=== PATIENT | male | born 1955 ===

== ENCOUNTER 2022-07-17 09:15 | Outpatient (REF) | payer MEDICARE, SELFPAY ==
[2022-07-17 11:05] LABS: MANUAL DIFF FLAG NO
[2022-07-17 11:28] LABS: Basophils Absolute Auto 0.1 X10*3/uL (0.0-0.2); Basophils Percent Auto 0.9 % (0-2); Eosinophils Absolute Auto 0.3 X10*3/uL (0.0-0.4); Eosinophils Percent Auto 5.1 % (0-4); Hematocrit 39.9 % (42.0-52.0); Hemoglobin 13.4 g/dl (14.0-18.0); Imm Gran Abs Auto 0.02 X10*3/uL (0.00-0.03); Imm Gran Pct Auto 0.3 % (0.0-0.4); Lymphocytes Absolute Auto 1.4 X10*3/uL (1.2-4.9); Lymphocytes Percent Auto 24.6 % (20-40); Mean Corpuscular HGB Conc 33.6 g/dl (31.0-36.0); Mean Corpuscular Hemoglobin 31.5 pg (27.0-33.0); Mean Corpuscular Volume 93.9 fL (80.0-98.0); Mean Platelet Volume 9.7 fL (9.4-12.4); Monocytes Absolute Auto 0.5 X10*3/uL (0.1-1.2); Monocytes Percent Auto 8.5 % (2-11); Neutrophils Absolute Auto 3.5 x10*3/uL (2.0-8.3); Neutrophils Percent Auto 60.6 % (45-73); Platelet Count 323 X10*3/uL (160-400); Red Blood Count 4.25 X10*6/uL (4.60-5.80); Red Cell Distribution Width 12.2 % (11.0-16.0); White Blood Count 5.9 X10*3/uL (4.8-10.8)
[2022-07-17 11:48] LABS: Estimated Average Glucose 103 mg/dL; Hemoglobin A1c % 5.2 %
[2022-07-17 11:53] LABS: Alanine Aminotransferase 12 U/L (0-40); Albumin Level 4.1 g/dL (3.5-5.0); Alkaline Phosphatase 28 U/L (39-117); Anion Gap 15 (12-20); Aspartate Amino Transferase 16 U/L (5-37); Bilirubin Total 1.3 mg/dL (0.0-1.0); Blood Urea Nitrogen 11 mg/dL (9-16); Calcium 9.7 mg/dL (8.4-10.2); Carbon Dioxide 25 mmol/L (22-29); Chloride 107 mmol/L (96-108); Cholesterol 210 mg/dL; Estimated Glomerular Filt Rate > 60; Glucose Random 99 mg/dL (60-115); HDL Cholesterol 50 mg/dL; LDL Cholesterol Calculated 146 mg/dl; Potassium 4.5 mmol/L (3.3-5.1); Sodium 142 mmol/L (135-145); Total Protein 6.6 g/dL (6.5-8.0); Triglycerides 70 mg/dL
== END 2022-07-17 09:16 | disposition home or self-care (01) ==
LOC: HO.MANLDS 09:15
PROVIDERS: Physician Assistant; Visit Provider Internal Medicine
DX: R73.01 Impaired fasting glucose (principal)
CPT/HCPCS: 36415; 80053; 80061; 83036; 85025

== ENCOUNTER 2025-05-30 09:27 | Outpatient (REF) | payer MEDICARE, SELFPAY ==
--- OUTSIDE RECORDS SUMMARY | 2025-05-30 11:09 | XMS_ITS | Encounter Summary ---
Author Organization [facility] Address [address] [facility] [address] [place] [address] Phone Care Team Providers Care Catering And Events Manager Name Role Phone Pieter Bragg MD Primary Care Provider [phone] Vic Mendez DO Primary Care Provider [phone] Reason for Referral * - Closed Specialty Diagnoses / Procedures Referred By Contangelica t Referred To Contact Radiology Diagnoses PAD (peripheral artery disease) Procedures US Aorta Duplex Complete Mariaa Cruz PA [address] [facility] [place] [address] [place] [address] Phone: tel: fax: Referral ID Status Reason Start Date Expiration Date Visits Re quested Visits Authorized [id number] Closed 10/15/2022 10/15/2023 1 1 Encounter Details Date Type Department Care Team (Late st Contact Info) Description 10/15/2022 Ancillary Orders [facility] [address] [place] [address] Mariaa Cruz PA [address] [facility] [place] [address] [place] [address] PAD (peripheral artery disease) Social History Tobacco Use Types Packs/Day Years Used Date Smoking Tobacco: Never Assessed Sex and Gender Information Value Date Recorded Sex Assigned at Male 10/10/2022 12:07 PM EST Legal Sex Male 9:53 PM EDT Gender Identity Male 10/10/2022 12:07 PM EST Sexual Orientation Straight 10/10/2022 12 :07 PM EST documented as of this encounter Plan of Treatment Not on file documented as of this encounter Results * US Aorta Duplex Complete (10/15/2022 10:56 AM EST) Anatomical Region Laterality Modality Aorta Ultrasound Narrative 10/15/2022 1:09 PM EST See scanned document. us Mariaa Nelson FOY IMG US ABDOMEN Final Resul t documented in this encounter Visit Diagnoses Diagnosis PVD (peripheral vascular disease) Unspecified peripheral vascular disease PAD (peripheral artery disease) Unspecified peripheral vascular disease PAD (peripheral artery disease) Unspecified peripheral vascular disease documented in this encounter Additional Health Concerns Infection Onset Date Last Indicated Resolved Time CoV-Risk 10/10/2022 10/10/2022 10/21/2022 1:23 AM EST documented as of this encounter Care Teams Catering And Events Manager Relationship Specialty Start Date End Date Pieter Bragg MD [address] [place] [address] PCP - General Family Medicine 03/07/20 01/26/23 Vic Mendez DO [address] [place] [address] PCP - General Internal Medicine 01/27/23 documented as of this encounter Additional Source Comments The information contained in this document represents components of the legal health record. It is not the complete legal health record.[facility]
--- OUTSIDE RECORDS SUMMARY | 2025-05-30 11:09 | XMS_ITS | Encounter Summary ---
Author Organization [facility] Address [address] [facility] [address] [place] [address] Phone Care Team Providers Care Furniture Crater Name Role Phone Pieter Bragg MD Primary Care Provider + [phone] Vic Mendez DO Primary Care Provider [phone] Reason for Referral * Physical Therapy (Elective) - Closed Specialty Diagnoses / Procedures Referred By Carlos krause Referred To Contact Physical Therapy Diagnoses Encounter for rehabilitation Left Shoulder ,Decrease pain and swelling , increase ROM or FLEXIBILITY , Strength and endurance Katie Daniel MD Phone: tel: fax: [address] [address] Phone: tel: Referral ID Status Reason Start Date Expiration Date Visits Re quested Visits Authorized [id number] Closed 05/26/2020 09/07/2020 25 25 Encounter Details Date Type Department Care Team (Latest Contact Info) Description 05/01/2020 Transcribe Orders [facility] [address] [place] [address] Katie Daniel MD [address] [place] [phone] Encounter for rehabilitation (Primary Dx) Social History Tobacco Use Types Packs/Day Years [...] on file documented as of this encounter Procedures Procedure Name Priority Date/Time Associated Diagnosis Comments AMB REFERRAL TO [facility] PHYSICAL THERAPY Routine 05/26/2020 1:30 PM EDT Encounter for rehabilitation documented in this encounter Results * Ambulatory referral to [facility] Physical Therapy (05/26/2020 1:30 PM EDT) us Katie Daniel MD AMB [facility] REFERRALS Rebecca l Result documented in this encounter Visit Diagnoses Diagnosis Encounter for rehabilitation- Primary documented in this encounter Additional Health Concerns Infection Onset Date Last Indicated Resolved Time CoV-Risk 10/10/2022 10/10/2022 10/21/2022 1:23 AM EST documented as of this encounter Care Teams Furniture Crater Relationship Specialty Start Date End Date Pieter Bragg MD [address] [place] [address] PCP - General Family Medicine 03/07/20 01/26/23 Vic Mendez DO [address] [place] [address] PCP - General Internal Medicine 01/27/23 documented as of this encounter Additional Source Comments The information contained in this document represents components of the legal health record. It is not the complete legal health record.[facility]
--- OUTSIDE RECORDS SUMMARY | 2025-05-30 11:09 | XMS_ITS | Encounter Summary ---
Author Organization [facility] Address [address] [facility] [address] [place] [address] Phone Care Team Providers Care Manager Wound Care Name Role Phone Unknown, Unknown Primary Care Provider Pieter Browne MD Primary Care Provider + [phone] Vic Mendez DO Primary Care Provider [phone] Reason for Referral * Physical Therapy (Routine) - Closed Specialty Diagnoses / Procedures Referred By Carlos krause Referred To Contact Physical Therapy Diagnoses Encounter for rehabilitation Left Shoulder Katie Daniel MD Phone: tel: fax: [address] [address] Phone: tel: Referral ID Status Reason Start Date Expiration Date Visits Re quested Visits Authorized [id number] Closed 03/02/2020 09/07/2020 17 17 Encounter Details Date Type Department Care Team (Latest Contact Info) Description 02/24/2020 Transcribe Orders [facility] [address] [place] [phone] Katie Daniel MD [address] [place] [phone] Encounter for rehabilitation (Primary Dx) Social History [...] Date/Time Associated Diagnosis Comments AMB REFERRAL TO [facility] PHYSICAL THERAPY Routine 03/02/2020 3:01 PM EDT Encounter for rehabilitation documented in this encounter Results * Ambulatory referral to [facility] Physical Therapy (03/02/2020 3:01 PM EDT) us Katie Daniel MD AMB [facility] REFERRALS Rebecca l Result documented in this encounter Visit Diagnoses Diagnosis Encounter for rehabilitation- Primary documented in this encounter Additional Health Concerns Infection Onset Date Last Indicated Resolved Time CoV-Risk 10/10/2022 10/10/2022 10/21/2022 1:23 AM EST documented as of this encounter Care Teams Manager Wound Care Relationship Specialty Start Date End Date Unknown, Unknown, MD PCP - General 02/23/20 03/06/20 Pieter Bragg MD [address] [place] [address] PCP - General Family Medicine 03/07/20 01/26/23 Vic Mendez DO [address] [place] [address] PCP - General Internal Medicine 01/27/23 documented as of this encounter Additional Source Comments The information contained in this document represents components of the legal health record. It is not the complete legal health record.[facility]
--- OUTSIDE RECORDS SUMMARY | 2025-05-30 11:09 | XMS_ITS | Encounter Summary ---
Author Organization [facility] Address [address] [facility] [address] [place] [address] Phone Care Team Providers Care Email Marketing Coordinator Name Role Phone Pieter Bragg MD Primary Care Provider Vic Mendez DO Primary Care Provider [phone] Reason for Referral * - Closed Specialty Diagnoses / Procedures Referred By Contac t Referred To Contact Radiology Diagnoses PAD (peripheral artery disease) Procedures US Lower Extremity Arteries (ZO) Physio Complete Bilat Pieter Bragg MD [address] [place] [address] Phone: tel: fax: [email or web address]:[email or web address] Referral ID Status Reason Start Date Expiration Date Visits Re quested Visits Authorized [id number] Closed 10/15/2022 10/15/2023 1 1 Encounter Details Date Type Department Care Team (Late st Contact Info) Description 10/15/2022 Ancillary Orders [facility] [address] [facility] [address] [place] [address] Pieter Bragg MD [address] [place], [place] [phone] [email or web address] PAD (peripheral artery disease) Social History Tobacco [...] as of this encounter Results * US Lower Extremity Arteries (ZO) Physio Complete Bilat (10/15/2022 10:56 AM EST) Anatomical Region Laterality Modality Ultrasound Narrative 10/15/2022 1:08 PM EST See scanned document. Procedure Note Farooq Jerome MD - 10/15/2022 See scanned document. us Pieter Bragg MD CV US VASCULAR Final Result documented in this encounter Visit Diagnoses Diagnosis PVD (peripheral vascular disease) Unspecified peripheral vascular disease PAD (peripheral artery disease) Unspecified peripheral vascular disease PAD (peripheral artery disease) Unspecified peripheral vascular disease documented in this encounter Additional Health Concerns Infection Onset Date Last Indicated Resolved Time CoV-Risk 10/10/2022 10/10/2022 10/21/2022 1:23 AM EST documented as of this encounter Care Teams Email Marketing Coordinator Relationship Specialty Start Date End Date Pieter Bragg MD [address] [place] [address] [email or web address] PCP - General Family Medicine 03/07/20 01/26/23 Vic Mendez DO [address] [place] [address] [email or web address] PCP - General Internal Medicine 01/27/23 documented as of this encounter Additional Source Comments The information contained in this document represents components of the legal health record. It is not the complete legal health record.[facility]
--- OUTSIDE RECORDS SUMMARY | 2025-05-30 11:10 | XMS_ITS | Encounter Summary ---
Author Organization [facility] Address [address] [facility] [address] [place] [address] Phone Care Team Providers Care Air Conditioning Coil Assembler Name Role Phone Pieter Bragg MD Primary Care Provider [phone] Vic Mendez DO Primary Care Provider [phone] Reason for Referral * Physical Therapy (Elective) - Closed Specialty Diagnoses / Procedures Referred By Carlos krause Referred To Contact Physical Therapy Diagnoses Encounter for rehabilitation Katie Daniel MD Phone: tel: fax: [address] [address] Phone: tel: Referral ID Status Reason Start Date Expiration Date Visits Re quested Visits Authorized [id number] Closed 08/21/2020 08/21/2021 1 1 Encounter Details Date Type Department Care Team (Latest Contact Info) Description 08/21/2020 Transcribe Orders [facility] [address] [place] [phone] Katie Daniel MD [address] [place] [phone] Encounter for rehabilitation (Primary Dx) Social History Tobacco Use Types Packs/Day Years Used Date Smoking Tobacco: Never Assessed Sex and Gender Information Value Date Recorded Sex Assigned at Male 10/10/2022 12:07 PM EST Legal Sex Male 9:53 PM EDT Gender Identity Male 10/10/2022 12:07 PM EST Sexual Orientation Straight 10/10/2022 12 :07 PM EST documented as of this encounter Plan of Treatment Scheduled Referrals Name Type Priority Associated Diagnoses Orde r Schedule Ambulatory referral to [facility] Physical Therapy Outpatient Referral Routine Encounter for rehabilitation Ordered: 08/21/2020 documented as of this encounter Visit Diagnoses Diagnosis Encounter for rehabilitation- Primary documented in this encounter Additional Health Concerns Infection Onset Date Last Indicated Resolved Time CoV-Risk 10/10/2022 10/10/2022 10/21/2022 1:23 AM EST documented as of this encounter Care Teams Air Conditioning Coil Assembler Relationship Specialty Start Date End Date Pieter Bragg MD [address] [place] [address] [email or web address] PCP - General Family Medicine 03/07/20 01/26/23 Vic Mendez DO [address] [place] [address] [email or web address] PCP - General Internal Medicine 01/27/23 documented as of this encounter Additional Source Comments The information contained in this document represents components of the legal health record. It is not the complete legal health record.[facility]
--- OUTSIDE RECORDS SUMMARY | 2025-05-30 11:10 | XMS_ITS | Clinical Summary ---
Author Organization [facility] Address [address] [facility] [address] [place] [address] Phone Care Team Providers Care History Faculty Member Name Role Phone Vic Mendez Primary Care Provider [phone] Allergies No known active allergies Medications albuterol 90 mcg/actuation inhaler Inhale 2 puffs into the lungs every 6 (six) hours as needed for wheezing or shortness of breath/dyspnea . 18 g 3 Active inhaler spacing device (AEROCHAMBER,BR EATHERITE) Spcr Inhale 1 each into the lungs every 6 (six) hours as needed (with inhaler). 1 each 3 Active Social History Tobacco Use Types Packs/Day Years Used Date Smoking Tobacco: Every Day Cigarettes Smokeless Tobacco: Never Tobacco Cessation:Ready to Q uit: Not Asked; Counseling Given: Not Answered Alcohol Use Standard Drinks/Week Comments Not Currently 0 (1 standard drink = 0.6 oz pur e alcohol) Education Answer Date Recorded Are you interested in more education? Not on ryan e 01/03/2023 Are you concerned about learning? Not on file 01/03/2023 No 01/03/2023 No 01/03/2023 Digital Access Answer Date Recorded No 01/28/2023 No 01/28/2023 No 01/28/2023 Reliable internet access at home? Not on file 01/28/2023 Device with a working camera? Not on file Intimate Partner Violence Answer Date R ecorded Are you denied basic needs s uch as food, clothing, or medical care? No 01/27/2023 In the past 12 months have y ou been in a relationship with a person who hurts, threatens, or tries to control you? No 01/27/2023 Are you denied basic needs s uch as food, clothing, or medical care? No 01/27/2023 In the past 12 months have y ou been in a relationship with a person who hurts, threatens, or tries to control you? No 01/27/2023 Sex and Gender Information Value Date Recorded Sex Assigned at Male 10/10/2022 12:07 PM EST Legal Sex Male 9:53 PM EDT Gender Identity Male 10/10/2022 12:07 PM EST Sexual Orientation Straight 10/10/2022 12 :07 PM EST Last Filed Vital Signs Vital Sign Reading Time Taken Comments Blood Pressure 114/79 01/27/2023 6:40 PM EDT Pulse 73 01/27/2023 6:40 PM EDT Temperature 36.5 C (97.7 F) 01/27/2023 6:40 PM EDT Respiratory Rate 18 01/27/2023 6:40 PM EDT Oxygen Saturation 97% 01/27/2023 6:40 PM EDT Inhaled Oxygen Concentration - - Weight 65.8 kg (145 lb) 01/27/2023 6:40 PM EDT Height 177.8 cm (5' 10 ) 10/10/2022 12:06 PM EST Body Mass Index 20.81 10/10/2022 12:06 PM EST Plan of Treatment Health Maintenance Due Date Last Done Comments LIPID PANEL 1956 DEPRESSION SCREENING 1968 SMOKING Hx and SMOKELESS TOBACCO SCREENING 1969 HEPATITIS C SCREENING 1974 COLOGUARD 2001 COLONOSCOPY 2001 COLORECTAL CANCER SCREENING 2001 FIT TEST 2001 FOBT 2001 SIGMOIDOSCOPY 2001 VIRTUAL COLONOSCOPY 2001 ZOSTER VACCINES (1 of 2) 2006 PNEUMOCOCCAL VACCINES (50+ years) (2 of 2 - PCV) 08/19/2013 08/19/2012 Adult Td,Tdap Booster 08/21/2021 08/21/2011 INFLUENZA VACCINE (#1) 2025 5, 05/02/2015, 09/23/2014, Additional history exists COVID-19 VACCINE (2023-25 season) 2025 RSV VACCINE (1 - 1-dose 75+ series) 11/25/2031 ABDOMINAL AORTIC ANEURYSM (AAA) SCREENING Completed 10/15/2022 HEPATITIS A VACCINES Aged Out No long er eligible based on patient's age to complete this topic HIB VACCINES Aged Out No longer eligi ble based on patient's age to complete this topic MENINGOCOCCAL VACCINES (ACWY) Aged Out No longer eligible based on patient's age to complete this topic MENINGOCOCCAL VACCINES (B) Aged Out N o longer eligible based on patient's age to complete this topic Medical Devices Not on file Procedures Procedure Name Priority Date/Time Associated Diagnosis Comments US AORTA DUPLEX COMPLETE Routine 10/15/2022 10:56 AM EST PAD (peripheral artery disease) from Last 3 Months or Most Recently Relevant to Health Maintenance Results * US Aorta Duplex Complete (10/15/2022 10:56 AM EST) Anatomical Region Laterality Modality Aorta Ultrasound Narrative 10/15/2022 1:09 PM EST See scanned document. us Mariaa FOY IMG US ABDOMEN Final Resul t from Last 3 Months or Most Recently Relevant to Health Maintenance Insurance [employer] POS PPO REPLACEMENT MEDICARE POS PPO REPLACEMENT MEDICARE POS PPO REPLACEMENT [employer] PPO REPLACEMENT MEDICARE POS PPO REPLACEMENT [employer] PPO REPLACEMENT Care Teams History Faculty Member Relationship Specialty Start Date End Date Vic Mendez DO [email or web address] PCP - General Internal Medicine 01/27/23 Additional Source Comments The information contained in this document represents components of the legal health record. It is not the complete legal health record.[facility]
[2025-05-30 13:06] LABS: MANUAL DIFF FLAG NO
[2025-05-30 13:13] LABS: Hematocrit 44.2 % (42.0-52.0); Hemoglobin 14.6 g/dl (14.0-18.0); Imm Gran Abs Auto 0.02 X10*3/uL (0.00-0.03); Imm Gran Pct Auto 0.3 % (0.0-0.4); Lymphocytes Absolute Auto 1.8 X10*3/uL (1.2-4.9); Mean Corpuscular HGB Conc 33.0 g/dl (31.0-36.0); Mean Corpuscular Hemoglobin 31.5 pg (27.0-33.0); Mean Corpuscular Volume 95.3 fL (80.0-98.0); NRBC Abs Auto 0.000 X10*3/uL (0.0-0.012); NRBC Pct Auto 0.0 /100WBC (0.0-0.2); Platelet Count 374 X10*3/uL (160-400); Red Blood Count 4.64 X10*6/uL (4.60-5.80); White Blood Count 7.7 X10*3/uL (4.8-10.8)
[2025-05-30 13:25] LABS: Hemoglobin A1C 141.0149 umol/L; Total Hemoglobin (HGBA1C) 3798.1041 umol/L
[2025-05-30 13:46] LABS: Alanine Aminotransferase 19 U/L (0-40); Albumin Level 4.6 g/dL (3.5-5.0); Alkaline Phosphatase 28 U/L (39-117); Anion Gap 12 (12-20); Aspartate Amino Transferase 25 U/L (5-37); Blood Urea Nitrogen 11 mg/dL (9-16); Calcium 9.7 mg/dL (8.4-10.2); Carbon Dioxide 26 mmol/L (22-29); Chloride 107 mmol/L (96-108); Cholesterol 220 mg/dL (<200); Estimated Glomerular Filt Rate > 60; HDL Cholesterol 50 mg/dL (>40); Potassium 4.2 mmol/L (3.3-5.1); Sodium 141 mmol/L (135-145); Total Protein 7.2 g/dL (6.5-8.0); Triglycerides 106 mg/dL (<150)
[2025-05-30 14:18] LABS: Prostate Specific Antigen 1.77 ng/mL (<0.05-4.0)
== END 2025-05-30 09:28 | disposition home or self-care (01) ==
LOC: HO.MANLDS 09:27
PROVIDERS: Visit Provider Physician Assistant
DX: Z00.00 Encounter for general adult medical examination without abnormal findings (principal); Z12.5 Encounter for screening for malignant neoplasm of prostate; Z13.1 Encounter for screening for diabetes mellitus; Z13.6 Encounter for screening for cardiovascular disorders
CPT/HCPCS: 36415; 80053; 80061; 83036; 84153; 85025